=== PATIENT | female | born 1935 | race Caucasian/White ===

== ENCOUNTER 2017-12-29 16:35 | Inpatient (IN) | payer MEDICARE ==
[~2017-12-29 16:35] MED LIST: ISOVUE-370 76%-LOCM 1 ML ONE
[2017-12-29 18:19] LABS: #Lymphocytes 0.6 thou/uL (1.20-3.40); #Monocytes 0.4 thou/uL (0.11-0.59); #Neutrophils 3.3 thou/uL (1.40-6.50); %Eosinophils 0.2 % (0.0-10.0); %Monocytes 9.3 % (0.0-10.0); %Neutrophils 76.4 % (42.0-75.0); Hemoglobin 15.8 g/dL (12.0-16.0); Mean Corpuscular HGB CONC 32.8 g/dL (32.0-36.0); Mean Corpuscular Volume 91.5 fl (81.0-99.0); Platelet Count 139 thou/uL (130-400); RBC Distribution Width 12.4 % (11.5-14.5); Red Blood Cell (RBC) Count 5.26 mill/uL (4.20-5.40); White Blood Cell (WBC) Count 4.3 thou/uL (4.8-10.8)
[2017-12-29 18:47] LABS: ALT (SGPT) 14 U/L (8-55); AST (SGOT) 25 U/L (5-34); Albumin 4.6 g/dL (3.4-4.8); Alkaline Phosphatase 98 U/L (40-150); Anion Gap 16 mmol/L (10-20); BUN (Urea Nitrogen) 11 mg/dL (9.8-20.1); Bilirubin, Total 0.9 mg/dL (0.2-1.2); Calc. Creatinine Clearance 0 mL/min (70-130); Carbon Dioxide 23 mmol/L (23-31); Chloride 106 mmol/L (98-107); Estimated GFR-MDRD 52; Globulin 2.4 g/dL (2.4-3.5); Glucose 117 mg/dL (83-110); Potassium 4.3 mmol/L (3.5-5.1); Sodium 141 mmol/L (136-145)
[2017-12-29 18:49] LABS: CKMB 3.9 ng/mL (0-6.6); Troponin I 0.129 ng/mL (< 0.028)
[2017-12-29] MEDS ORDERED: hydrALAZINE 20 MG/ML VIAL ONE (18:50)
--- NOTE | 2017-12-29 19:33 | RAD ---
PORTABLE CHEST: 12/29/17 HISTORY: Chest pain. Lung broussard are clear. No evidence of vascular congestion. There is a calcified granuloma in the left mid lung. Heart and mediastinum are unremarkable. IMPRESSION: No acute abnormality. POS: [facility]
[2017-12-29] MEDS ORDERED: Acetaminophen 500 MG TAB ONE (19:47)
[2017-12-29] MEDS ORDERED: Ondansetron HCl/PF 4 MG/2 ML Vial ONE (19:47)
--- NOTE | 2017-12-29 19:55 | CT ---
CT HEAD NONCONTRAST: 12/29/17 INDICATION: Syncope. Hypertension. FINDINGS: There is parenchymal volume loss. Ventricular system is age appropriate in size. Mild chronic microva scular ischemic disease is present. No intracranial hemorrhage or mass effect or midline shift. The i christy paranasal sinuses are clear. IMPRESSION: No acute intracranial abnormalities. POS: [facility]
[2017-12-29 20:21] LABS: Bilirubin Negative (Negative); Blood, Urine Trace (Negative); Clarity CLEAR (Clear); Glucose, Urine (Dipstick) Negative (Negative); Leukocyte Negative (Negative); Nitrite Negative (Negative); Protein, Urine (Dipstick) 100 mg/dL (Neg-Trace); Specific Gravity, Urine 1.012 (1.002-1.036); Urobilinogen 0.2 mg/dL (0.2-1.0); pH, Urine 7.5 (5.0-9.0)
[2017-12-29 20:24] LABS: Bacteria/HPF None Seen HPF (None Seen); Hyaline Casts/LPF 0-3 HYALINE CAST LPF (0-3 Hyaline); Squamous Epithelial None Seen HPF (0-3)
[2017-12-29] MEDS ORDERED: Enoxaparin Sodium 60 MG/0.6 ML SYRINGE ONE (20:56)
[2017-12-29] MEDS ORDERED: Nitroglycerin 2% Ointment 1 INCH/1 GM Packet ONE (20:56)
--- NOTE | 2017-12-29 21:04 | CT ---
CT PULMONARY ANGIO OF CHEST WITH CONTRAST 12/29/17 Multiple axial tomograms obtained through the chest following pulmonary angio protocol with multiplan ar reconstructions and 3D postprocessing. HISTORY: Chest pain. Syncope. Assess for pulmonary embolism. Also concern of aortic dissection. FINDINGS: The pulmonary arteries are well opacified. There is no evidence of pulmonary embolus. The thoracic and upper abdominal aorta is also opacified. There is no evidence of thoracic or upper a bdominal aortic dissection. The abdominal aorta is visualized beyond the renal arteries. The lungs are clear. No infiltrate or effusion seen. There are chronic lung parenchymal changes. Nons pecific mediastinal and hilar lymph nodes are noted. There is mild thickening of the esophageal wall which is of uncertain significance. There are several radiopaque gallstones seen in the gallbladder. Spleen is upper normal size measured at 11 cm. There is a small sliding diaphragmatic hernia. IMPRESSION: 1. No evidence of pulmonary embolus. 2. No evidence of aortic dissection. 3. There are chronic lung parenchymal changes but no evidence of acute infiltrate. 4. Nonspecific mediastinal and hilar adenopathy. 5. Small sliding diaphragmatic hernia. 6. Cholelithiasis. 7. Borderline splenomegaly. POS: [facility]
[2017-12-29 22:16] LABS: Troponin I 0.763 ng/mL (< 0.028)
[2017-12-29] MEDS ORDERED: Ondansetron HCl/PF 4 MG/2 ML Vial IVP PRN (22:37)
[2017-12-29] MEDS ORDERED: Ondansetron ODT 4 MG TAB SL PRN (22:37)
[2017-12-29 23:25] VITALS: BMI 22.9
[2017-12-30] MEDS: Acetaminophen 325 MG TAB PO PRN ×2 (02:55→06:50)
[2017-12-30 06:03] LABS: CKMB 9.2 ng/mL (0-6.6); Troponin I 0.814 ng/mL (< 0.028)
[2017-12-30] MEDS ORDERED: Nitroglycerin 0.4 MG TAB (25 Tab Bottle) SL PRN (08:35)
[2017-12-30] MEDS ORDERED: Loratadine 10 MG TAB PO PRN (08:35)
[2017-12-30] MEDS ORDERED: hydrALAZINE 20 MG/ML VIAL SLOW IVP PRN (08:35)
[2017-12-30] MEDS ORDERED: Diabetic Tussin 200 MG/10 ML UDCUP PO PRN (08:35)
[2017-12-30] MEDS ORDERED: Senokot 8.6 MG TAB PO PRN (08:35)
[2017-12-30] MEDS ORDERED: Benzonatate 100 MG CAP PO PRN (08:35)
[2017-12-30] MEDS ORDERED: cloNIDine 0.1 MG TAB PO PRN (08:35)
[2017-12-30] MEDS ORDERED: Ondansetron HCl/PF 4 MG/2 ML Vial IVP PRN (08:35)
[2017-12-30] MEDS ORDERED: Guaifenesin DM 100-10/5 ML UDCUP PO PRN (08:35)
[2017-12-30] MEDS ORDERED: HYDROcodone/Acetaminophen 5/325 mg Tablet PO PRN (08:35)
[2017-12-30] MEDS ORDERED: Mag-Al 1200 mg/1200 mg/30 ML UDCUP PO PRN (08:35)
[2017-12-30] MEDS ORDERED: Bisacodyl 5 MG TAB PO PRN (08:35)
[2017-12-30] MEDS ORDERED: Calcium Carbonate 500 MG ChewTAB PO PRN (08:35)
[2017-12-30] MEDS ORDERED: Aspirin 81 mg Enteric Coated Tablet PO SCH (08:45)
[2017-12-30] MEDS ORDERED: Losartan 25 MG TAB PO SCH ×2 (09:00→11:30)
[2017-12-30 09:45] LABS: Cardiac Risk 4.3 (Less than 4.5)
[2017-12-30] MEDS ORDERED: Carvedilol 3.125 MG TAB PO SCH ×2 (10:51→11:30)
[2017-12-30] MEDS: Enoxaparin Sodium 60 MG/0.6 ML SYRINGE SC SCH ×2 (11:10→20:10)
[2017-12-30] MEDS: Aspirin 81 mg Enteric Coated Tablet PO SCH (11:10)
[2017-12-30] MEDS: Famotidine/PF 20 mg/2ml Vial SLOW IVP SCH ×2 (11:11→20:09)
[2017-12-30] MEDS: Sodium Chloride 0.9% 1,000 ML IV SCH (11:14)
--- NOTE | 2017-12-30 11:25 | HP ---
PRIMARY CARE PHYSICIAN: Dr. Maurilio Pereira CHIEF COMPLAINT: Blurred vision, dizziness and headache. HISTORY OF PRESENT ILLNESS: Ms. Mancini is a very pleasant 82-year-old female with past medical history of hypertension and history of breast cancer and ovarian cancer status post mastectomy and hysterect colette who presented to the emergency room with the above-mentioned complaints. History is mainly obtai girma by the patient herself. She is a resident of [facility]. She reports that Wednesday night she started to have symptoms where her television when blurred. She di d not think much of it and went to sleep, but she continued to have some dizziness and blurred vision throughout the course of the next couple of days and eventually she decided to come in when she was feeling very tired and felt that something was not right. She measured her blood pressure at home and it was noted to be very high. She took her medications, but it did not bring her blood pressure down. She takes losartan 100 mg a day. Other than that, she denies any recent illnesses. She denies any chest pain or discomfort. She denies any orthopnea, PND or shortness of breath. She denies any muscle weakness, numbness, tingling, swallowing problems or speech impediment. She denies any fever, chills, nausea, vomiting, diarrhea, abdominal pain. She has no dysuria, frequency or urg ency. Upon presentation to the emergency room her blood pressure was elevated to 197/92 and she was tachyca rdic at 112. Her temperature was 98 with respirations of 18. Her initial workup included a 12-lead EKG which was nonspecific and has sinus rhythm. She had elevated D-dimer for which she underwent a C T angio which was negative for any pulmonary embolism. No evidence of pneumonia per se. She did hav e elevated cardiac enzymes with troponin of 0.129 on presentation with normal CK-MB of 3.9. She rece ived therapeutic Lovenox in the emergency room at 1 mg per kilograms dosing along with aspirin and ni troglycerin 2% 1 inch paste along with antiemetics and Tylenol. Her blood pressure improved and she is now being admitted for non-ST elevation HI and hypertensive urgency. Her CT scan of the brain is unremarkable and so is a chest x-ray. At the time of my evaluation, she has just finished the physical therapy and has been complaining of headache and has noted that her blood pressure went from 139/67 to 170s. PAST MEDICAL HISTORY: 1. Hypertension. 2. History of breast cancer. 3. History of ovarian cancer. SURGICAL HISTORY: Mastectomy and hysterectomy. PSYCHIATRIC PAST SURGICAL HISTORY: No depression or anxiety. SOCIAL HISTORY: She lives at [facility]. She has no history of drug, tobacco or alcohol abuse. ALLERGIES: No known medication allergies. CURRENT MEDICATIONS: Losartan 100 mg daily, aspirin 81 mg daily. FAMILY HISTORY: Significant for stroke and heart attack in her father who at age of 72. One of her grandmothers also has had a heart attack. REVIEW OF SYSTEMS: The following complete review of systems was negative, unless otherwise mentioned in the HPI or below: Constitutional: Weight loss or gain, ability to conduct usual activities. Skin: Rash, itching. Eyes: Double vision, pain. ENT/Mouth: Nose bleeding, neck stiffness, pain, tenderness. Cardiovascular: Palpitations, dyspnea on exertion, orthopnea. Respiratory: Shortness of breath, wheezing, cough, hemoptysis, fever or night sweats. Gastrointestinal: Poor appetite, abdominal pain, heartburn, nausea, vomiting, constipation, or diarrhea. Genitourinary: Urgency, frequency, dysuria, nocturia. Musculoskeletal: Pain, swelling. Neurologic/Psychiatric: Anxiety, depression. Allergy/Immunologic: Skin rash, bleeding tendency. It is negative except for what is mentioned in the history and physical. LABORATORY DATA: CT scan of the brain by my review has no hemorrhage, mass effect or acute infarctio n. Chest x-ray by my review does not show any pulmonary edema, effusion or infiltrate. CT angio is negative for pulmonary embolism. CBC shows WBCs at 4.3 with 76% neutrophils, otherwise unremarkable. D-dimer 0.92. Serum chemistry s hows a blood sugar of 117, otherwise normal. Her cardiac enzymes have been trended and her troponin has increased from 0.129 to 0.763 and then 0.814 and her CK-MB has gone up from 3.9 to 9.2. Her lipi d panel has been checked this morning and is within normal limits with LDL of 104 and HDL of 40. Uri nalysis shows some RBCs and WBCs, but no nitrites, leukocyte esterase or bacteria. A 12-lead EKG by my review shows normal sinus rhythm with nonspecific T-wave changes and sinus tachyc ardia. PHYSICAL EXAMINATION: VITAL SIGNS: Most recent vital signs include temperature 98.7, pulse of 75, respirations 18, saturat ing 95% on room air, blood pressure 170/81. GENERAL: No acute distress, awake, alert, oriented x3. HEENT: Mucous membrane is moist and pink. No oropharyngeal exudate or erythema. Head is normocepha lic, atraumatic. Pupils are equal, reactive to light and accommodation. No facial droop noticed. NECK: Supple without any lymphadenopathy, JVD or bruit. CHEST: Clear to auscultation without any wheezing, rales or rhonchi. CARDIOVASCULAR: Rhythm is regular without any murmurs or gallops. ABDOMEN: Soft, nontender, nondistended, positive bowel sounds. EXTREMITIES: Free of any cyanosis, clubbing, or edema. NEUROLOGIC: Nonfocal. SKIN: Free of any rashes, jaundice, or bruises. PSYCHIATRIC: Normal affect. VASCULAR: +2 pedal pulses felt bilaterally. IMPRESSION AND PLAN: 1. Non-ST elevation myocardial infarction. The patient most likely has suffered an acute cardiac ev ent. At this time, she will be continued on aspirin at home dosages and we will start her on a beta tracey along with restarting her ARBs. At this time, we will also continue to treat her with therap eutic dose of Lovenox at 1 mg/kg. Cardiology has been consulted and we will await further recommenda tions. The patient is open to the idea of cardiac catheterization if necessary. At this time, we wi ll go ahead and obtain a transthoracic echocardiogram. 2. Hypertensive urgency, most likely secondary to #1. We will restart her losartan at half the dose to accommodate addition of the beta tracey. Monitor closely, add p.r.n. antihypertensive agents. Echocardiogram has been ordered. 3. History of breast cancer, status post mastectomy. 4. History of ovarian cancer, status post hysterectomy. 5. CODE STATUS: Do not resuscitate, do not intubate as discussed with the patient and explained to her. 6. Deep venous thrombosis and gastrointestinal prophylaxis. 7. P.r.n. medication orders. DISPOSITION: Ms. Mancini is being admitted to the hospital for hypertensive urgency and non-ST elevatio n myocardial infarction. Estimated length of stay is at least 2-3 midnights. Further management july l depend upon her clinical course and Cardiology recommendations.
[2017-12-30] MEDS: traMADol HCl 50 MG TAB PO PRN (11:30)
--- NOTE | 2017-12-30 12:19 | CON ---
DATE OF CONSULTATION: 12/30/2017 INDICATION FOR CONSULTATION: An 82-year-old female who was admitted yesterday complaining of dizzine ss. She was noted to have hypertension. She has been dizzy since Wednesday morning, but got worse yest erday and she presented to the emergency room. She lives in independent living at [place]. She mak s had no previous cardiac history, but does have a history of hypertension. She has no history of di abetes or hypercholesterolemia or tobacco abuse. She denied any chest pain. In the emergency room c ardiac enzymes were obtained and were found to be somewhat indeterminate with troponin I is 0.129, wh ich is increased up to now 0.814 with an MB which has increased from 3.9 to 9.2. She denies any ches t pain. Her EKG did show some nonspecific ST segment changes, but no ST segment elevation and there is minimal EKG changes to indicate ischemia. At this time, she is comfortable. She has had no histo ry in the past of cardiac disease and she denies chest pain or shortness of breath. PAST MEDICAL HISTORY: Significant for the hypertension. She has had ovarian cancer, breast cancer. She had bilateral mastectomies and a hysterectomy. She has had a leg fracture of the lower leg, but she cannot remember which one. SOCIAL HISTORY: She lives in independent living center at [place]. She has no alcohol or tobacco abuse. FAMILY HISTORY: Unremarkable for any early heart disease. ALLERGIES: None. HOME MEDICATIONS: Losartan, aspirin, Ocuvite vitamins. At this time she has been given addition of beta blockers and Lovenox has been initiated. In the emergency room, she was given nitroglycerin pas te, aspirin, Lovenox, Zofran, Tylenol, and hydralazine. The blood pressure was under better control. However, it is now again elevated, but she has been started now on beta-blockers and we will contin ue to monitor this very carefully. REVIEW OF SYSTEMS: Unremarkable except for the blurred vision and dizziness. Otherwise, 12 point re view of systems is completely unremarkable. PHYSICAL EXAMINATION: GENERAL: Reveals a well-developed, well-nourished, elderly female. VITAL SIGNS: Blood pressure 178/79, heart rate in the 80s and shows sinus rhythm. She is afebrile, respiratory rate is 18. HEENT: Shows the head to be normocephalic, atraumatic. Carotid pulses are present. I do not hear a ny bruits. CHEST: Clear to auscultation, no rales, rhonchi or wheezing noted. CARDIOVASCULAR: Exam reveals a regular rate and rhythm. She has a normal S1, S2. There is no S3, S 4. There were no significant murmurs, heaves, thrills, bruits or rubs. ABDOMEN: Soft and nontender with positive bowel sounds. No organomegaly or masses noted. Femoral p ulses are present. EXTREMITIES: Showed no clubbing, cyanosis, edema. Pedal pulses present. NEUROLOGIC: The patient appears to be intact with normal motor function. SKIN: Warm and dry. EKG shows a normal sinus rhythm, sinus tachycardia with nonspecific T-wave changes. These are actual ly very minimal changes, they are not indicative of any acute ST segment changes at this time. She d id have some mild tachycardia, but otherwise the EKG is unremarkable for any ST segment changes on e initial EKG. Her cardiac enzymes are as noted above. IMPRESSION: 1. Possible non-ST segment elevation myocardial infarction, but most likely this is indeterminate ca rdiac enzymes due to elevation of the high blood pressure with the systolic pressures over the 200s. This may be demand ischemia. Most likely this is the etiology of her elevated cardiac enzymes. 2. Hypertensive urgency. This appears to be trending downwards at this time. We will continue the medications. 3. Dizziness, which most likely is associated with hypertension. The patient is a DNR status. At this time, I will obtain an echocardiogram. I would continue the pa tient on the medications as they are until we can determine whether or not the cardiac enzymes contin ue to trend upward, but she is very comfortable and has no pain at this time and no shortness of florencio th. Once the echocardiogram was obtained and she remains stable, then the next step, she would best be served by undergoing some type of stress testing to rule out evidence of ischemia. If any is note d, then she may be a candidate for a cardiac catheterization if so indicated, but first I would orly t her medically.
[2017-12-30 14:00] LABS: Critical Call Chem Troponin I RESULT DECREASING; Troponin I 0.763 ng/mL (< 0.028)
[2017-12-30] MEDS: Carvedilol 3.125 MG TAB PO SCH (18:27)
[2017-12-31] MEDS: Sodium Chloride 0.9% 1,000 ML IV SCH ×2 (00:36→15:27)
[2017-12-31] MEDS: Acetaminophen 325 MG TAB PO PRN ×2 (04:43→15:27)
[2017-12-31 05:38] LABS: Anion Gap 12 mmol/L (10-20); BUN (Urea Nitrogen) 12 mg/dL (9.8-20.1); Calc. Creatinine Clearance 47 mL/min (70-130); Calcium 8.9 mg/dL (7.8-10.44); Carbon Dioxide 22 mmol/L (23-31); Chloride 110 mmol/L (98-107); Estimated GFR-MDRD 61; Glucose 89 mg/dL (83-110); Potassium 3.7 mmol/L (3.5-5.1); Sodium 140 mmol/L (136-145)
[2017-12-31 06:01] LABS: Hemoglobin 12.8 g/dL (12.0-16.0); Mean Corpuscular HGB CONC 32.8 g/dL (32.0-36.0); Mean Corpuscular Hemoglobin 29.7 pg (27.0-31.0); Mean Corpuscular Volume 90.5 fl (81.0-99.0); Mean Platelet Volume 6.9 fL (7.4-10.4); Platelet Count 137 thou/uL (130-400); RBC Distribution Width 12.2 % (11.5-14.5); Red Blood Cell (RBC) Count 4.33 mill/uL (4.20-5.40); White Blood Cell (WBC) Count 3.8 thou/uL (4.8-10.8)
[2017-12-31 06:02] LABS: Band 1 % (5-11); Eosinophils 2 % (0-10); Lymphocytes 24 % (21-51); MDiff Complete? YES; Monocytes 11 % (0-10); Neutrophil 53 % (42-75); PLT Morphology Comment Appears Adequate; RBC Morphology Normal; Reactive Lymphocytes 9 % (0-10)
[2017-12-31] MEDS: Enoxaparin Sodium 60 MG/0.6 ML SYRINGE SC SCH (09:52)
[2017-12-31] MEDS: Losartan 25 MG TAB PO SCH (09:54)
[2017-12-31] MEDS: Famotidine/PF 20 mg/2ml Vial SLOW IVP SCH ×2 (09:54→21:01)
[2017-12-31] MEDS: Aspirin 81 mg Enteric Coated Tablet PO SCH (09:55)
[2017-12-31] MEDS: Carvedilol 3.125 MG TAB PO SCH ×2 (09:55→17:57)
[2017-12-31] MEDS ORDERED: Carvedilol 3.125 MG TAB PO SCH (10:15)
--- NOTE | 2017-12-31 10:19 | PDOC.CTH ---
<Bernadine Carlson - Last Filed: 12/31/17 10:16> Cardiology Progress Note - Subjective The pt seen and examined. No overnight events. No cardiac complaints. Per RN , her BP this AM was 107 and up to 197. She denied headache or blurry vision at this time - Objective Vital Signs Temp Pulse Resp BP Pulse Ox 12/31/17 07:32 98.5 F 72 16 107/53 L 95 12/31/17 04:00 98.0 F 77 18 132/60 97 Weight 138 lb 12/30/17 12/31/17 01/01/18 06:59 06:59 06:59 Intake Total 1253 Output Total 1500 Balance -247 - Physical Examination General/Neuro: alert & oriented x3 Neck: no JVD present Lungs: CTA Heart: RRR Abdomen: soft Extremities: other: (No edema) - Telemetry Telemetry Rhythm: SR 60-70s - Labs Result Diagrams: 12/31/17 05:00 12/31/17 05:00 Troponin/CKMB CK-MB (CK-2) 9.2 ng/mL (0-6.6) H* 12/30/17 05:07 Troponin I 0.763 ng/mL (< 0.028) H* 12/30/17 12:55 - Assessment/Plan 1. Indeterminate Trop - possible due to HTN emergency. Already trending down. On ASA, BBlocker, and Lovenox; cont. monitor on tele; 2. HTN - increase Coreg from 3.125mg to 6.25mg BID. cont. monitor 3. hx of breast and ovarian ca MAR reviewed Review of Systems - Review of Systems Constitutional: reports: weakness EENTM: reports: no symptoms reported Respiratory: reports: no symptoms reported Cardiac (ROS): reports: no symptoms reported ABD/GI: reports: no symptoms reported : reports: no symptoms reported Musculoskeletal: reports: no symptoms reported <Alonso Knutson - Last Filed: 12/31/17 14:26> Cardiology Progress Note - Objective Vital Signs Temp Pulse Resp BP Pulse Ox 12/31/17 12:20 75 18 121/60 93 L 12/31/17 09:50 77 195/88 H 12/31/17 07:32 98.5 F 75 18 107/53 L 95 12/31/17 04:00 98.0 F 77 18 132/60 97 Weight 138 lb 12/30/17 12/31/17 01/01/18 06:59 06:59 06:59 Intake Total 1253 Output Total 1500 Balance -247 - Labs Result Diagrams: 12/31/17 05:00 12/31/17 05:00 Troponin/CKMB CK-MB (CK-2) 9.2 ng/mL (0-6.6) H* 12/30/17 05:07 Troponin I 0.763 ng/mL (< 0.028) H* 12/30/17 12:55 - Assessment/Plan Pt. seen and eval. by me. I agree with the A/P by the [employer].No new c/o's. Chest clear. RRR. Plan for f/u in the office in 2-4 weeks.
--- NOTE | 2017-12-31 12:07 | PDOC.PN ---
- Subjective Encounter Start Date: 12/31/17 Encounter Start Time: 11:50 Subjective: f/u for demand ischemia tx with Lovenox, Coreg, ASA. States feels fine but -: some weakness. Occasional blurred vision. Appetite improved. No CP, SOB. -: Plan for med mgmt. - Objective Resuscitation Status: Resuscitation Status DNR:Do Not Resuscitate MAR Reviewed: Yes Vital Signs & Weight: Vital Signs (12 hours) Temp Pulse Resp BP Pulse Ox 12/31/17 09:50 77 195/88 H 12/31/17 07:32 98.5 F 72 16 107/53 L 95 12/31/17 04:00 98.0 F 77 18 132/60 97 Weight Weight 138 lb I&O: 12/30/17 12/31/17 01/01/18 06:59 06:59 06:59 Intake Total 1253 Output Total 1500 Balance -247 Result Diagrams: 12/31/17 05:00 12/31/17 05:00 Additional Labs: Microbiology 12/29/17 20:09 Urine voided Urine Culture - Preliminary NO GROWTH AT 12 HOURS Laboratory Tests 12/29/17 12/29/17 12/29/17 18:06 18:08 21:28 Magnesium 1.9 Troponin I 0.129 H 0.763 H* B-Natriuretic Peptide Triglycerides Cholesterol LDL Cholesterol, Calc HDL Cholesterol 12/30/17 12/30/17 12/30/17 05:07 05:07 05:07 Magnesium Troponin I 0.814 H* B-Natriuretic Peptide 355.7 H Triglycerides 140 Cholesterol 172 LDL Cholesterol, Calc 104 HDL Cholesterol 40 12/30/17 12:55 Magnesium Troponin I 0.763 H* B-Natriuretic Peptide Triglycerides Cholesterol LDL Cholesterol, Calc HDL Cholesterol Radiology Reviewed by me: Yes (2D echo - EF 60-65%, mild diast dysfxn) EKG Reviewed by me: Yes (Tele - SR) Phys Exam - Physical Examination Constitutional: NAD HEENT: PERRLA, oral pharynx no lesions Neck: no JVD, supple Respiratory: no wheezing, clear to auscultation bilateral Cardiovascular: RRR Gastrointestinal: soft, non-tender, no distention, positive bowel sounds Musculoskeletal: no edema, pulses present Neurological: normal sensation, moves all 4 limbs Psychiatric: A&O x 3 Skin: normal turgor, cap refill <2 seconds Dx/Plan (1) Demand ischemia Code(s): I24.8 - OTHER FORMS OF ACUTE ISCHEMIC HEART DISEASE Status: Acute Comment: Continue med mgmt, may consider stress testing in future, continue ASA , Coreg, Losartan, add Lipitor (2) HTN (hypertension) Code(s): I10 - ESSENTIAL (PRIMARY) HYPERTENSION Status: Chronic Qualifiers: Hypertension type: essential hypertension Qualified Code(s): I10 - Essential (primary) hypertension Comment: Titrate BP meds for optimal control (3) Blurred vision, bilateral Code(s): H53.8 - OTHER VISUAL DISTURBANCES Status: Chronic Comment: Suspect secondary to BP fluctuations, monitor response with titration of BP regimen - Plan plan discussed w/ family, PT/OT, [employer]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
--- NOTE | 2017-12-31 14:29 | PQF ---
CLINICAL DOCUMENTATION IMPROVEMENT CLARIFICATION FORM: ICD-10 Updated PLEASE DO AN ADDENDUM TO THE PROGRESS NOTE WITH ANY DOCUMENTATION UPDATES OR ADDITIONS AND CARRY THROUGH TO DC SUMMARY. THANK YOU. DATE: 12/31/17 ATTN: Dr. Hutton Please exercise your independent, professional judgment in responding to the clarification form. Clinical indicators are provided on the bottom of this form for your review Please check appropriate box(s): AMI TYPE: [ ] NSTEMI [ ] AMI Type II [ x ] NSTEMI DUE TO DEMAND ISCHEMIA [ ] Other diagnosis [ ] Unable to determine In addition, please specify: Present on Admission (POA): [ x ] Yes [ ] No [ ] Unable to determine CLINICAL INDICATORS - SIGNS / SYMPTOMS / LABS H&P: NON-STEMI. HYPERTENSIVE URGENCY, MOST LIKELY SECONDARY TO #1 CARDIOLOGY CONSULT: POSSIBLE NON-STEMI, BUT MOST LIKELY THIS IS INDETERMINATE CARDIAC ENZYMES D/T ELEVATION OF HIGH BP W/ SP OVER THE 200s. THIS MAY BE DEMAND ISCHEMIA. PN 12/31/17: DEMAND ISCHEMIA HYPERTENSION. CHRONIC. RISKS: H&P: AGE 82. HYPERTENSIVE URGENCY CARDIOLOGY CONSULT: TROPONIN l 0.129 , WHICH INCREASED UP TO 0.814 W/ MB INCREASED FROM 3.9 TO 9.2 TREATMENT: CPOE 12/30: LOVENOX SC. DC'D 12/31 CPOE 12/31: COREG 6.25 MG PO BID. Thank you, Mirtha (This form is maintained as a part of the permanent medical record) 2014 [employer]. All Rights Reserved [facility]
[2017-12-31] MEDS: traMADol HCl 50 MG TAB PO PRN (18:25)
[2017-12-31] MEDS: Atorvastatin Calcium 20 MG TAB PO SCH (21:01)
[2018-01-01] MEDS: Sodium Chloride 0.9% 1,000 ML IV SCH (06:01)
[2018-01-01] MEDS: traMADol HCl 50 MG TAB PO PRN (06:03)
[2018-01-01] MEDS: Famotidine/PF 20 mg/2ml Vial SLOW IVP SCH (08:22)
[2018-01-01] MEDS: Losartan 25 MG TAB PO SCH (08:22)
[2018-01-01] MEDS: Carvedilol 3.125 MG TAB PO SCH (08:23)
[2018-01-01] MEDS: Aspirin 81 mg Enteric Coated Tablet PO SCH (08:23)
--- NOTE | 2018-01-01 12:03 | PDOC.CTH ---
Cardiology Progress Note - Subjective She is now complaining of double vision. She denies any chest pain, tightness, pressure SOB. - Objective Vital Signs Temp Pulse Resp BP Pulse Ox 01/01/18 07:30 96.4 F L 76 16 92 L 01/01/18 07:17 96.4 F L 76 16 166/70 H 92 L 01/01/18 04:00 98.5 F 70 18 122/55 L 92 L Weight 134 lb 8 oz 12/31/17 01/01/18 01/02/18 06:59 06:59 06:59 Intake Total 1253 2630 Output Total 1500 1300 Balance -247 1330 - Physical Examination General/Neuro: alert & oriented x3, NAD Neck: no JVD present Lungs: unlabored respirations Heart: RRR Abdomen: NT/ND Extremities: other: (no edema) - Telemetry Telemetry Rhythm: NSR - Labs Result Diagrams: 12/31/17 05:00 12/31/17 05:00 Troponin/CKMB CK-MB (CK-2) 9.2 ng/mL (0-6.6) H* 12/30/17 05:07 Troponin I 0.763 ng/mL (< 0.028) H* 12/30/17 12:55 - Assessment/Plan 1. Indeterminate Trop 2. HTN 3. Hx of breast and ovarian ca 4. Diplopia. PLAN: - Agree with MRI of brain - Will increase coreg to improve BP control. - Will follow.
--- NOTE | 2018-01-01 13:14 | PDOC.PN ---
- Subjective Encounter Start Date: 01/01/18 Encounter Start Time: 11:00 Subjective: c/o double vision, headache and dizziness -: no specific weakness in any extremity, is amb in room -: no chest pain or palpitations - Objective Resuscitation Status: Resuscitation Status DNR:Do Not Resuscitate MAR Reviewed: Yes Vital Signs & Weight: Vital Signs (12 hours) Temp Pulse Resp BP Pulse Ox 01/01/18 12:05 62 18 120/60 94 L 01/01/18 07:30 96.4 F L 76 16 92 L 01/01/18 07:17 96.4 F L 76 16 166/70 H 92 L 01/01/18 04:00 98.5 F 70 18 122/55 L 92 L Weight Weight 134 lb 8 oz I&O: 12/31/17 01/01/18 01/02/18 06:59 06:59 06:59 Intake Total 1253 2630 Output Total 1500 1300 Balance -247 1330 Result Diagrams: 12/31/17 05:00 12/31/17 05:00 Phys Exam - Physical Examination HEENT: PERRLA, moist MMs Neck: no JVD, supple Respiratory: no wheezing, no rales Cardiovascular: RRR, no significant murmur Gastrointestinal: soft, non-tender, positive bowel sounds Musculoskeletal: no edema, pulses present Neurological: non-focal, moves all 4 limbs Psychiatric: A&O x 3 Dx/Plan (1) HTN (hypertension) Code(s): I10 - ESSENTIAL (PRIMARY) HYPERTENSION Status: Chronic Qualifiers: Hypertension type: essential hypertension Qualified Code(s): I10 - Essential (primary) hypertension Comment: Titrate BP meds for optimal control (2) Demand ischemia Code(s): I24.8 - OTHER FORMS OF ACUTE ISCHEMIC HEART DISEASE Status: Acute (3) Dyslipidemia Code(s): E78.5 - HYPERLIPIDEMIA, UNSPECIFIED Status: Chronic - Plan MRI brain to r/o cva -: ambulate as tolerated -: optimizing meds for htn (prefer permissive htn) -: dc plan in 24 hrs * . Review of Systems - Medications/Allergies Allergies/Adverse Reactions: Allergies Allergy/AdvReac Type Severity Reaction Status Date / Time No Known Allergies Allergy Verified 12/29/17 23:04 Medications: Current Medications Acetaminophen (Tylenol) 650 mg PO Q4H PRN PRN Reason: Headache/Fever or Pain Last Admin: 02/09/18 15:27 Dose: 650 mg Hydrocodone Bitart/Acetaminophen (Hardy 5/325) 1 tab PO Q4H PRN PRN Reason: Moderate Pain (4-6) Al Hydroxide/Mg Hydroxide (Maalox) 30 ml PO Q6H PRN PRN Reason: Heartburn or Indigestion Aspirin (Ecotrin) 81 mg PO DAILY [facility] Last Admin: 01/01/18 08:23 Dose: 81 mg Atorvastatin Calcium (Lipitor) 20 mg PO HS [facility] Last Admin: 12/31/17 21:01 Dose: 20 mg Benzonatate (Tessalon) 100 mg PO Q4H PRN PRN Reason: Cough Bisacodyl (Dulcolax) 10 mg PO DAILYPRN PRN PRN Reason: Constipation Calcium Carbonate (Tums) 1,000 mg PO Q4H PRN PRN Reason: Heartburn or Indigestion Carvedilol (Coreg) 12.5 mg PO BID[facility] Clonidine (Catapres) 0.1 mg PO Q4H PRN PRN Reason: Systolic BP > 180 Famotidine (Pepcid) 20 mg PO BID [facility] Guaifenesin (Robitussin Sf) 200 mg PO Q4H PRN PRN Reason: Cough Guaifenesin/Dextromethorphan (Robitussin Dm) 15 ml PO Q4H PRN PRN Reason: Cough Hydralazine HCl (Apresoline) 10 mg SLOW IVP Q4H PRN PRN Reason: Systolic BP > 180 Loratadine (Claritin) 10 mg PO DAILYPRN PRN PRN Reason: Sinus Symptoms Losartan Potassium (Cozaar) 50 mg PO DAILY [facility] Last Admin: 01/01/18 08:22 Dose: 50 mg Nitroglycerin (Nitrostat) 0.4 mg SL Q5MIN PRN PRN Reason: Chest Pain Ondansetron HCl (Zofran) 4 mg IVP Q6H PRN PRN Reason: Nausea/Vomiting Last Admin: 12/31/17 10:07 Dose: 4 mg Senna (Senokot) 2 tab PO HSPRN PRN PRN Reason: Constipation Sodium Chloride (Flush - Normal Saline) 10 ml IVF Q12HR [facility] Last Admin: 01/01/18 08:22 Dose: 10 ml Sodium Chloride (Flush - Normal Saline) 10 ml IVF PRN PRN PRN Reason: Saline Flush Tramadol HCl (Ultram) 50 mg PO Q4H PRN PRN Reason: Moderate Pain (4-6) Last Admin: 01/01/18 06:03 Dose: 50 mg
--- NOTE | 2018-01-01 16:40 | MRI ---
MRI OF BRAIN PERFORMED WITHOUT CONTRAST ENHANCEMENT: 01/01/18 HISTORY: Dizziness, blurred vision, hypertension. COMPARISON: A 12/29/17 CT examination. There is generalized ventricular and sulcal prominence. There is increased T2 and FLAIR signal change within the white matter consistent with chronic ischemic white matter change. On the diffusion weigh ernst sequence, there is no signs of acute infarct. No intra or extra-axial mass. The pituitary region is unremarkable. Mastoid air cells and visualized sinuses are clear. IMPRESSION: Atrophy with chronic white matter change. No acute intracranial abnormalities. POS: [facility]
[2018-01-01] MEDS: Carvedilol 6.25 MG TAB PO SCH (17:49)
[2018-01-01] MEDS: Famotidine 20 MG TAB PO SCH (20:47)
[2018-01-01] MEDS: Atorvastatin Calcium 20 MG TAB PO SCH (20:47)
[2018-01-02 08:48] LABS: Mean Corpuscular HGB CONC 33.1 g/dL (32.0-36.0); Mean Corpuscular Volume 90.7 fl (81.0-99.0); Mean Platelet Volume 6.8 fL (7.4-10.4); Platelet Count 148 thou/uL (130-400); RBC Distribution Width 12.3 % (11.5-14.5); Red Blood Cell (RBC) Count 4.68 mill/uL (4.20-5.40); White Blood Cell (WBC) Count 3.7 thou/uL (4.8-10.8)
[2018-01-02] MEDS: Carvedilol 6.25 MG TAB PO SCH (09:06)
[2018-01-02] MEDS: Losartan 25 MG TAB PO SCH (09:06)
[2018-01-02] MEDS: Famotidine 20 MG TAB PO SCH (09:06)
[2018-01-02] MEDS: Aspirin 81 mg Enteric Coated Tablet PO SCH (09:06)
[2018-01-02 09:10] VITALS: BP 188/81
[2018-01-02 09:12] VITALS: TEMP 97.8
[2018-01-02 09:13] LABS: Anion Gap 11 mmol/L (10-20); BUN (Urea Nitrogen) 11 mg/dL (9.8-20.1); Calc. Creatinine Clearance 0 mL/min (70-130); Calcium 9.8 mg/dL (7.8-10.44); Carbon Dioxide 28 mmol/L (23-31); Chloride 108 mmol/L (98-107); Estimated GFR-MDRD 52; Glucose 108 mg/dL (83-110); Potassium 3.9 mmol/L (3.5-5.1); Sodium 143 mmol/L (136-145)
[2018-01-02 09:29] LABS: Band 1 % (5-11); Eosinophils 4 % (0-10); Lymphocytes 22 % (21-51); MDiff Complete? YES; Monocytes 7 % (0-10); Neutrophil 65 % (42-75); PLT Morphology Comment Appears Adequate; RBC Morphology Normal; Reactive Lymphocytes 1 % (0-10)
--- NOTE | 2018-01-02 11:26 | PDOC.PN ---
- Subjective Encounter Start Date: 01/02/18 Encounter Start Time: 08:30 Subjective: feels better, is amb with rw in room -: no headache, has blurry vision off and on -: no chest pain or palp - Objective Resuscitation Status: Resuscitation Status DNR:Do Not Resuscitate MAR Reviewed: Yes Vital Signs & Weight: Vital Signs (12 hours) Temp Pulse Resp BP BP Pulse Ox 01/02/18 09:06 188/81 H 01/02/18 08:30 97.8 F 77 16 188/81 H 97 01/02/18 03:36 98.1 F 69 18 132/62 92 L Weight Weight 4.79 oz I&O: 01/01/18 01/02/18 01/03/18 06:59 06:59 06:59 Intake Total 2630 1180 Output Total 1300 1750 Balance 1330 -570 Result Diagrams: 01/02/18 08:17 01/02/18 08:17 Phys Exam - Physical Examination HEENT: PERRLA, moist MMs Neck: no JVD, supple Respiratory: no wheezing, no rales Cardiovascular: RRR, no significant murmur Gastrointestinal: soft, non-tender, positive bowel sounds Musculoskeletal: no edema, pulses present Neurological: non-focal, moves all 4 limbs Psychiatric: normal affect, A&O x 3 Dx/Plan (1) HTN (hypertension) Code(s): I10 - ESSENTIAL (PRIMARY) HYPERTENSION Status: Chronic Qualifiers: Hypertension type: essential hypertension Qualified Code(s): I10 - Essential (primary) hypertension (2) Demand ischemia Code(s): I24.8 - OTHER FORMS OF ACUTE ISCHEMIC HEART DISEASE Status: Acute (3) Dyslipidemia Code(s): E78.5 - HYPERLIPIDEMIA, UNSPECIFIED Status: Chronic - Plan has cataract and macular degeneration, needs to f/u with her opthalmologist -: -s in 1-2 weeks, MRI showed no cva -: on coreg and cozaar, asp, lipitor -: to check BP and pulse twice daily and record for 10 days to f/u with pcp -: dc pt home, d/w daughter at bedside * .
--- NOTE | 2018-01-02 23:55 | DIS ---
DATE OF ADMISSION: 12/29/2017 DATE OF DISCHARGE: 01/02/2018 DISCHARGE DISPOSITION: To home. PRIMARY DISCHARGE DIAGNOSES: 1. Hypertensive emergency, resolved. 2. Demand ischemia secondary to above. 3. Dyslipidemia. PROCEDURES DONE DURING HOSPITALIZATION: The patient has had MRI brain done, which has not revealed a ny acute CVA. CT angio chest showed no evidence of pulmonary embolus. No dissection was seen. Echo with 2D Doppler showed EF of 60%-65% with mild diastolic dysfunction. Urine culture grew mixed birdie a, H and H 14 and 42, platelet count 148 with 65% neutrophils. Troponin I was indeterminate with pea akil up to 0.7. CK-MB was 9.2, total cholesterol 172, triglycerides 140, LDL 104, HDL 40. BNP was 3 55. DISCHARGE MEDICATIONS: Coreg 12.5 mg p.o. twice daily, Cozaar 50 mg p.o. daily, atorvastatin 20 mg p .o. at bedtime, aspirin 81 mg p.o. daily, multivitamin 1 capsule daily. ALLERGIES: No known drug allergies. INPATIENT CONSULTATIONS: Dr. Knutson for Cardiology. BRIEF COURSE DURING HOSPITALIZATION: Patient initially got admitted on the with complaints of bl urry vision, dizziness, and headache. On arrival, the patient had blood pressures of 170/80 and had indeterminate troponins as well. She was essentially admitted to telemetry for hypertensive emergenc y with demand ischemia. She was placed on multiple medications to control her blood pressure. She w as also evaluated by Dr. Knutson for Cardiology. The patient continued to complain of headache with jr rry vision and diplopia. In view of this, she has had MRI done in addition to the CT brain, which wa s done on admission. Both showed no evidence of acute CVA. The patient has cataract and also has ma cular degeneration. She has had multiple opinions from at least three procurement consultant about her eye findings. She is going to follow up with one of them in the next 1-2 weeks. The patient has been ad vised to check her blood pressure and pulse twice daily and record on a sheet of paper to follow up w ith primary care physician in 1 week. She is ambulating with a rolling walker and eating well prior to discharge. Her headache has completely resolved at the time of discharge. The patient did not mak ve any chest pain during her stay here. Please see a [id number] documentation on [employer] for the day of discharge.
== END 2018-01-02 11:02 | disposition home or self-care (01) | DRG 281 ==
LOC: ERS 16:35 → 2NO 21:24
PROVIDERS: ADMIT Internal Medicine; ATTEND Internal Medicine
DX: I21.A1 Myocardial infarction type 2 (principal); I16.1 Hypertensive emergency; E78.5 Hyperlipidemia, unspecified; I10 Essential (primary) hypertension; Z85.3 Personal history of malignant neoplasm of breast; Z85.43 Personal history of malignant neoplasm of ovary; I16.0 Hypertensive urgency; Z90.710 Acquired absence of both cervix and uterus; Z66 Do not resuscitate; H26.9 Unspecified cataract; H35.30 Unspecified macular degeneration; Z90.13 Acquired absence of bilateral breasts and nipples
CPT/HCPCS: 36415; 70450; 70551; 71045; 71275; 80048; 80053; 80061; 81001; 82553; 83735; 83880; 84484; 85025; 85379; 87086; 93005; 93306; 96361; 96372; 96374; 96375; A4216; G8978-GP-CL; G8979-GP-CJ; G8987-GO-CK; G8988-GO-CI; J0360; J1650; J2405; S0028